=== PATIENT | male | born 1995 | race African-American/Black ===

== ENCOUNTER 2019-03-22 11:41 | Emergency (ER) | payer OTHER ==
[~2019-03-22] VITALS: Ht 180.3 cm; Wt 62.6 kg
--- NOTE | 2019-03-22 11:48 | NUR ---
NOT IN TRIAGE AREA WHEN CALLED
--- NOTE | 2019-03-22 12:13 | NUR ---
Patient transported to Radiology in stable condition.
--- NOTE | 2019-03-22 12:34 | NUR ---
DR Escobar made patient aware of test results.
--- NOTE | 2019-03-22 12:38 | NUR ---
Patient discharged to home in stable conditon. Written and verbal after care instructions given. Patient verbalizes understanding of instructions.
[2019-03-22 12:39] VITALS: BP 125/71
== END 2019-03-22 12:40 | disposition home or self-care (01) ==
LOC: ER 11:48
DX: M54.5 Low back pain (principal); V49.9XXA Car occupant (driver) (passenger) injured in unspecified traffic accident, initial encounter; Y93.89 Activity, other specified; Y92.89 Other specified places as the place of occurrence of the external cause; Y99.8 Other external cause status
CPT/HCPCS: 72110; A4663